=== PATIENT | male | born 1970 | race Caucasian/White ===

== ENCOUNTER 2023-06-12 08:35 | Outpatient (CLI) | payer BC, OTHER ==
[2023-06-12] MEDS ORDERED: Magnevist 469MG/ML 20 ML VIAL ONE (09:49)
== END 2023-06-12 08:36 | disposition home or self-care (01) ==
LOC: CSHMRI 08:35
PROVIDERS: ATTEND Nurse Practitioner Family
DX: R97.20 Elevated prostate specific antigen [PSA] (principal); N40.2 Nodular prostate without lower urinary tract symptoms; R93.89 Abnormal findings on diagnostic imaging of other specified body structures
CPT/HCPCS: 72197; A9579